=== PATIENT | female | born 1975 | race Hispanic/Latino ===

== ENCOUNTER 2017-02-07 06:51 | Outpatient (CLI) | payer BC ==
[2017-02-07 07:55] LABS: #Basophils 0.1 thou/uL (0.0-0.2); #Eosinphils 0.2 thou/uL (0.0-0.7); #Lymphocytes 2.4 thou/uL (1.20-3.40); #Monocytes 0.4 thou/uL (0.11-0.59); #Neutrophils 2.9 thou/uL (1.40-6.50); %Basophils 1.5 % (0.0-1.0); %Eosinophils 2.9 % (0.0-10.0); %Lymphocytes 39.7 % (21.0-51.0); %Monocytes 7.3 % (0.0-10.0); %Neutrophils 48.7 % (42.0-75.0); Hemoglobin 15.4 g/dL (12.0-16.0); Mean Corpuscular HGB CONC 33.9 g/dL (32.0-36.0); Mean Corpuscular Hemoglobin 30.5 pg (27.0-31.0); Mean Corpuscular Volume 89.9 fl (81.0-99.0); Mean Platelet Volume 6.9 fL (7.4-10.4); Platelet Count 362 thou/uL (130-400); RBC Distribution Width 12.8 % (11.5-14.5); Red Blood Cell (RBC) Count 5.04 mill/uL (4.20-5.40)
[2017-02-07 08:00] LABS: ALT (SGPT) 32 U/L (0-55); AST (SGOT) 32 U/L (5-34); Albumin 4.2 g/dL (3.5-5.0); Alkaline Phosphatase 66 U/L (40-150); Anion Gap 13 mmol/L (10-20); BUN (Urea Nitrogen) 13 mg/dL (7.0-18.7); Bilirubin, Total 0.4 mg/dL (0.2-1.2); Calc. Creatinine Clearance 0 mL/min (70-130); Calcium 9.3 mg/dL (7.8-10.44); Carbon Dioxide 21 mmol/L (22-29); Chloride 112 mmol/L (98-107); Estimated GFR-MDRD Greater than 90; Globulin 2.7 g/dL (2.4-3.5); Glucose 114 mg/dL (70-105); Potassium 4.4 mmol/L (3.5-5.1); Protein, Total 6.9 g/dL (6.0-8.3); Sodium 142 mmol/L (136-145)
[2017-02-07 08:02] LABS: Hemoglobin A1c 5.3 % (4.0-6.0)
[2017-02-07 08:15] LABS: Free T4 (Free Thyroxine) 0.93 ng/dL (0.70-1.48); Thyroid Stimulating Hormone 0.0167 uIU/mL (0.35-4.94)
== END 2017-02-07 06:52 | disposition home or self-care (01) ==
LOC: BURLAB 06:51
PROVIDERS: ATTEND Internal Medicine Endocrinology, Diabetes & Metabolism
DX: E66.3 Overweight (principal); E06.3 Autoimmune thyroiditis; E88.81 Metabolic syndrome and other insulin resistance; E78.2 Mixed hyperlipidemia
CPT/HCPCS: 36415; 80053; 83036; 84439; 84443; 84481; 85025